=== PATIENT | male | born 1985 | race Caucasian/White ===

== ENCOUNTER 2017-03-11 14:23 | Emergency (ER) | payer OTHER ==
[~2017-03-11] VITALS: Ht 180.3 cm; Wt 163.3 kg
--- NOTE | ~2017-03-11 | EKG ---
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 : 1985 Requested By: Johanna Caldera Order Number: [id number] MD: Fredis Burch Measurements Intervals [place] Rate: 73 P: 25 CA: 204 QRS: -11 QRSD: 92 T: 15 QT: 392 QTc: 432 Interpretive Statements Sinus rhythm Borderline prolonged CA interval Inferior infarct, old Poor R wave progression No previous ECG available for comparison Electronically Signed On 03-12-2017 13:49:56 CDT by Fredis Burch [email or web address] <ELECTRONICALLY SIGNED> By: Fredis Burch MD, [facility] 03/12/17 1349 1430 1430 Fredis Burch MD, FACC /EPI
[~2017-03-11 14:23] MED LIST: CARISOPRODOL 3350 MG PO; FLEXERIL PO; IBUPROFEN 800800 M1 PO; MEDROLDOSEPACK PO; NOHOMEMEDICATIONS; PREDNISONE 20 M20 MG PO; ULTRAM 50MG TAB50 MG PO
[2017-03-11 15:35] LABS: HEMATOCRIT 39.3 % (42.0-52.0); HEMOGLOBIN 13.6 gm/dL (14.0-18.0); MCH 29.6 pg (26.0-34.0); MCHC 34.5 g/dL (28.0-37.0); MCV 85.7 fL (80.0-100.0); RBC 4.59 mil/uL (4.50-6.00); RDW 13.6 % (10.5-14.5); WBC 9.1 thou/uL (4.0-11.0)
[2017-03-11 15:43] LABS: ANION GAP 8 mmol/L (7-16); BUN 18 mg/dL (7-18); CALCIUM 8.8 mg/dL (8.5-10.1); CHLORIDE 99 mmol/L (98-107); CO2 29 mmol/L (21-32); CREATININE 0.8 mg/dL (0.7-1.3); GLUCOSE 184 mg/dL (74-106); POTASSIUM 3.6 mmol/L (3.5-5.1); SODIUM 136 mmol/L (136-145)
[2017-03-11 15:52] LABS: ALKALINE PHOSPHATASE 93 U/L (46-116); SGPT 42 U/L (30-65); TOTAL BILIRUBIN 0.3 mg/dL (<0.1-1.0); TOTAL PROTEIN 7.3 g/dL (6.4-8.2); TROPONIN-I < 0.04 ng/mL (<0.04-0.07)
[2017-03-11 16:03] LABS: SGOT 32 U/L (15-37)
[2017-03-11 16:54] VITALS: BP 140/82
== END 2017-03-11 16:55 | disposition home or self-care (01) ==
LOC: ER 14:23
PROVIDERS: Physician Assistant
DX: R07.89 Other chest pain (principal); J45.909 Unspecified asthma, uncomplicated; E78.00 Pure hypercholesterolemia, unspecified; E11.9 Type 2 diabetes mellitus without complications; I10 Essential (primary) hypertension; F17.210 Nicotine dependence, cigarettes, uncomplicated; F10.99 Alcohol use, unspecified with unspecified alcohol-induced disorder; Z88.5 Allergy status to narcotic agent; Z86.59 Personal history of other mental and behavioral disorders